=== PATIENT | male | born 1975 | race Caucasian/White ===

== ENCOUNTER 2018-02-28 16:29 | Emergency (ER) | payer OTHER ==
[~2018-02-28] VITALS: Ht 182.9 cm; Wt 95.2 kg
[~2018-02-28 16:29] MED LIST: AMOX500 PO; GABA100 PO; HYDACE5 PO; METH10 PO; NEOPOLHCSU OT
[2018-02-28] MEDS ORDERED: MORP60ER PO (16:41)
== END 2018-02-28 21:08 | disposition home or self-care (01) ==
LOC: ER 16:29
DX: S86.912A Strain of unspecified muscle(s) and tendon(s) at lower leg level, left leg, initial encounter (principal); M25.552 Pain in left hip; F17.200 Nicotine dependence, unspecified, uncomplicated; Z79.899 Other long term (current) drug therapy; W19.XXXA Unspecified fall, initial encounter
CPT/HCPCS: 99283

== ENCOUNTER 2022-09-24 17:35 | Emergency (ER) | payer OTHER ==
[~2022-09-24] VITALS: Ht 182.9 cm; Wt 106.6 kg
[~2022-09-24 17:35] MED LIST changes: +MORP60ER PO
[2022-09-24 18:06] LABS: BASOPHILS ABSOLUTE AUTO 0.11 K/mm3 (0.00-0.23); BASOPHILS PERCENT AUTO 1 % (0-2); EOSINOPHILS ABSOLUTE AUTO 0.32 K/mm3 (0.00-0.68); EOSINOPHILS PERCENT AUTO 3 % (0-6); Hematocrit 32.9 % (37.0-53.0); Hemoglobin 11.8 g/dL (13.5-17.5); IMMATURE GRAN ABSOLUTE AUTO 0.05 K/mm3 (0.00-0.10); IMMATURE GRAN PERCENT AUTO 1 % (0-1); LYMPHOCYTES ABSOLUTE AUTO 2.18 K/mm3 (0.84-5.20); LYMPHOCYTES PERCENT AUTO 20 % (21-46); MONOCYTES ABSOLUTE AUTO 0.95 K/mm3 (0.16-1.47); MONOCYTES PERCENT AUTO 9 % (4-13); Mean Corpuscular HGB Conc 35.9 g/dL (31.5-36.5); Mean Corpuscular Volume 112 fL (80-100); Mean Platelet Volume 9.8 fL (9.1-12.4); NEUTROPHILS ABSOLUTE AUTO 7.17 K/mm3 (1.96-9.15); NEUTROPHILS PERCENT AUTO 67 % (41-73); Platelet Count 141 K/mm3 (150-400); RDW Coefficient Variation 13.5 % (11.7-14.2); RDW Standard Deviation 55.2 fL (35.1-46.3); Red Blood Cell Count 2.95 M/mm3 (4.30-5.90); White Blood Cell Count 10.78 K/mm3 (4.00-11.30)
[2022-09-24 18:20] LABS: International Normalized Ratio 1.96; Prothrombin Time Results 19.8 Sec (9.7-11.5)
[2022-09-24 18:21] LABS: Albumin, Blood 2.4 g/dL (3.4-5.0); Albumin/Globulin Ratio 0.5 (0.8-1.8); Bilirubin, Total 7.3 mg/dL (0.1-1.0); Bun/Creatinine Ratio 13.4 (12.0-20.0); Calcium, Blood 8.9 mg/dL (8.5-10.1); Creatinine, Blood 1.57 mg/dL (0.60-1.20); Globulin, Blood 5.3 g/dL (2.2-4.0); Potassium, Blood 3.2 mmol/L (3.5-5.5); Total Protein, Blood 7.7 g/dL (6.4-8.2)
[2022-09-24] MEDS ORDERED: TORSE20 PO (19:52)
[2022-09-24] MEDS ORDERED: KLOR-CON M1010 MEQ PO (19:53)
[2022-09-24] MEDS ORDERED: SPIR25 PO (19:53)
[2022-09-24] MEDS ORDERED: HYDHCL25 PO (19:54)
[2022-09-25] VITALS: BP 127/72
== END 2022-09-25 00:19 | disposition left against medical advice (07) ==
LOC: ER 17:35
PROVIDERS: Physician Assistant
DX: K83.1 Obstruction of bile duct (principal); E80.6 Other disorders of bilirubin metabolism; R18.8 Other ascites; F17.200 Nicotine dependence, unspecified, uncomplicated
CPT/HCPCS: 74177; 76705; 80053; 82248; 83690; 85025; 85610; 99284-25; A9270; Q9967